=== PATIENT | male | born 2005 | race African-American/Black ===

== ENCOUNTER 2023-12-02 09:38 | Emergency (ER) | payer OTHER, MEDICAID, SELFPAY ==
[2023-12-02 09:49] VITALS: BP 117/79; PULSE 74; RESP 18; TEMP 36.3; O2SAT 97
[2023-12-02 10:19] LABS: Appearance Urine Cloudy (Clear); Bacteria Urine None Seen /hpf; Bilirubin Urine Negative (Negative); Blood Urine Negative (Negative); Color Urine Yellow (Yellow); Glucose Urine UA Negative (Negative); Ketones Urine Negative (Negative); Leukocyte Esterase Ur 2+ LEU/UL (Negative); Nitrate Urine Negative (Negative); Non Pathogenic Casts 0-2; Protein Urine Trace mg/dL (Negative); RBC Urine 0-2 /hpf (0-2); Specific Grav Ur 1.026 (1.001-1.035); Squamous Epithelial Cell Urine None Seen /hpf (Few); WBC Urine >100 /hpf (0-3)
[2023-12-02 10:25] LABS: Add Urine Microscopic? YES
[2023-12-02 11:20] LABS: Trichomonas Vag PCR NOT DETECTED (NOT DETECTE)
[2023-12-02 11:43] LABS: Chlamydia trachomatis NOT DETECTED (NOT DETECTE); Neisseria gonorrhoeae PCR DETECTED (NOT DETECTE)
--- NOTE | 2023-12-02 11:59 | ED.GENADULT ---
HPI - General Adult General Chief complaint: Urogenital-Male Stated complaint: pain in my private area burning with urination Time Seen by Provider: 12/02/23 09:51 History of Present Illness HPI narrative: 18-year-old male presenting to the emergency department for evaluation for burning with urination. Patient started having discharge from his penis yesterday. Patient denies any associated abdominal pain or nausea vomiting. Related Data Allergies Allergy/AdvReac Type Severity Reaction Status Date / Time banana Allergy Unknown Verified 12/02/23 09:54 Fish Containing Products Allergy Unknown Verified 12/02/23 09:54 Review of Systems Review of Systems: All systems reviewed & are unremarkable except as noted in HPI and below Exam Narrative: APPEARANCE: Well appearing, no pain, no distress, well-nourished. HEAD: normocephalic, atraumatic. EYES: PERRLA/EOMI, conjunctivae clear. NOSE: Normal no drainage EARS:TMS clear with good light reflex. THROAT: Pharynx clear, no exudate. NECK: Supple. No adenopathy, no masses. RESPIRATORY: Airway patent, respirations nonlabored. Clear to auscultation bilaterally, no rales, rhonchi, wheezing. CARDIOVASCULAR: Regular rate and rhythm without murmurs rubs or gallops. ABDOMINAL: Soft, nontender, nondistended, normal bowel sounds MUSCULOSKELETAL: Moves all extremities. Strength/ROM intact, No edema, No calf tenderness. NEURO: Alert. Cranial nerves II through XII intact. Good gait. Good coordination SKIN: Warm, dry. Normal Color Course Course Emergency Course: Patient was treated for gonorrhea and chlamydia. Vital Signs Vital signs: Vital Signs Temperature 97.3 F L 12/02/23 09:49 Pulse Rate 74 12/02/23 09:49 Respiratory Rate 18 12/02/23 09:49 Blood Pressure 117/79 12/02/23 09:49 Pulse Oximetry 97 12/02/23 09:49 Oxygen Delivery Room Air 12/02/23 09:49 Temperature 97.3 F L 12/02/23 09:49 Pulse Rate 87 12/02/23 12:31 Respiratory Rate 20 12/02/23 12:31 Blood Pressure 132/62 12/02/23 12:31 Pulse Oximetry 100 12/02/23 12:31 Oxygen Delivery Room Air 12/02/23 09:49 Medical Decision Making MDM Narrative Medical decision making narrative: 18-year-old male presents to the emergency department for evaluation for burning with urination. Patient's UA was cloudy with leuk esterase positive greater than 100 white blood cells. Patient did test positive for gonorrhea. Patient was treated for both gonorrhea and chlamydia. Patient received 500 mg IM Rocephin the emergency department and was started on doxy and patient was discharged home with doxycycline. Patient was advised to refrain from sexual activity until both he and his partner have completed their antibiotics. Patient was encouraged of close follow-up with primary care physician. Differential Diagnosis Differential Diagnosis: Gonorrhea, chlamydia, Trichomonas, urinary tract infection Vital Signs Vital Signs: Vital Signs Temperature 97.3 F L 12/02/23 09:49 Pulse Rate 74 12/02/23 09:49 Respiratory Rate 18 12/02/23 09:49 Blood Pressure 117/79 12/02/23 09:49 Pulse Oximetry 97 12/02/23 09:49 Oxygen Delivery Room Air 12/02/23 09:49 Temperature 97.3 F L 12/02/23 09:49 Pulse Rate 87 12/02/23 12:31 Respiratory Rate 20 12/02/23 12:31 Blood Pressure 132/62 12/02/23 12:31 Pulse Oximetry 100 12/02/23 12:31 Oxygen Delivery Room Air 12/02/23 09:49 Lab Data Labs: Lab Results 12/02/23 Range/Units 10:04 Urine Color Yellow (Yellow) Urine Appearance Cloudy H (Clear) Urine pH 6.0 (5.0-9.0) Ur Specific [place] 1.026 (1.001-1.035) Urine Protein Trace (Negative) mg/dL Urine Glucose (UA) Negative (Negative) mg/dL Urine Ketones Negative (Negative) mg/dL Ur Blood (Man) Negative (Negative) Urine Nitrate Negative (Negative) Urine Bilirubin Negative (Negative) Urine Urobilinogen 1.0 (<2.0) mg/dL Leukocyte Estera
[2023-12-02] MEDS: LIDOCAINE HCL 1% LOCAL INJ 10 ML VIAL (12:24)
[2023-12-02] MEDS: DOXYCYCLINE HYCLATE 100 MG TABLET PO (12:25)
[2023-12-02] MEDS: cefTRIAXone 1 GM VIAL 0.5 GM IM (12:26)
[2023-12-02 12:31] VITALS: BP 132/62; PULSE 87; RESP 20; O2SAT 100
== END 2023-12-02 12:33 | disposition home or self-care (01) ==
PROVIDERS: Emergency Provider Emergency Medicine
DX: A54.9 Gonococcal infection, unspecified (principal)
CPT/HCPCS: 81001; 87086; 87491; 87591; 87661; 96372; 99283; A9270; J0696

== ENCOUNTER 2024-12-28 17:32 | Emergency (ER) | payer BC, SELFPAY ==
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
--- OUTSIDE RECORDS SUMMARY | 2024-12-28 17:34 | XMS_ITS | Patient Health Record ---
Author Organization Pending sale to [facility] Address [address] [place] [address] Care Team Providers Care Insurance Rater Name Role Phone Meng Meza Primary Care Provider Allergies No Known Allergies Reason For Referral No Information Medications Medication SIG (Take, Route, Fr equency, Duration) Notes Start Date End Date Status guanFACINE HCl ER 1 MG 1 tablet before b ed. 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
[2024-12-28 17:40] VITALS: BP 146/86; PULSE 111; RESP 17; TEMP 36.7; O2SAT 99
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
[2024-12-28] MEDS: HYDROcodone/acetaminophen (*CRX) 5-325 MG TABLET 1 TAB PO (20:07)
[2024-12-28 20:12] VITALS: BP 139/70; PULSE 100; RESP 16; TEMP 36.7; O2SAT 100
[2024-12-28] MEDS: BACITRACIN OINTMENT 15 GM TUBE 1 APPLIC TOPICAL (20:32)
== END 2024-12-28 20:40 | disposition home or self-care (01) ==
PROVIDERS: Emergency Provider Student in an Organized Health Care Education/Training Program
DX: S01.81XA Laceration without foreign body of other part of head, initial encounter (principal); V47.5XXA Car driver injured in collision with fixed or stationary object in traffic accident, initial encounter
CPT/HCPCS: 70450; 72125; 90471; 99284; A9270; L0140

== ENCOUNTER 2025-01-21 22:33 | Observation (INO) | payer BC, SELFPAY ==
--- NOTE | ~2025-01-21 | XR_ITS ---
Clinical Indication: Chest pain PA and lateral views of the chest: Comparison: None Findings: The lungs are clear, without evidence of focal consolidation or pleural effusion. Cardiomediastinal silhouette is within normal limits. Bones and soft tissues are unremarkable. Impression: Normal chest. Reviewed, dictated and finalized at location . Impression: Normal chest.
--- OUTSIDE RECORDS SUMMARY | 2025-01-21 22:35 | XMS_ITS | Patient Health Record ---
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
[2025-01-21 22:37] VITALS: BP 139/69; PULSE 121; RESP 18; TEMP 37.4; O2SAT 97
--- NOTE | 2025-01-21 22:44 | ECG_ITS ---
Test Date: 2025-01-21 22:47:03 Measurements Intervals [place] Rate: 110 P: 34 MD: 154 QRS: 65 QRSD: 95 T: -11 QT: 308 QTc: 418 Interpretive Statements SINUS TACHYCARDIA INCOMPLETE RIGHT BUNDLE BRANCH BLOCK NONSPECIFIC ST & T-WAVE ABNORMALITY- INF/LAT LEADS BASELINE WANDER- AVR, AVL, AVF, V3, V5-V6 ABNORMAL ECG No previous ECG available for comparison Electronically Signed On 01-22-2025 06:16:10 CDT by Roberto Carlos Pena D.O.
[2025-01-21 23:02] LABS: Hematocrit 41.6 % (42.0-52.0); Hemoglobin 14.2 g/dL (14.0-18.0); Immature Granulocyte Percent A 0.3 % (0-0.5); Lymphocytes Absolute Auto 2.23 K/mm3 (0.9-3.2); Mean Corpuscular HGB Conc 34.1 g/dl (32-36); Mean Corpuscular Hemoglobin 31.6 pg (26-34); Mean Corpuscular Volume 92.4 fl (80-100); Nucleated Red Blood Cells Absolute Auto 0.000 K/mm3 (0.0-0.012); Nucleated Red Blood Cells Perc 0.0 % (0.0-0.2); Platelet Count Result 298 k/mm3 (150-375); Red Blood Count 4.50 M/mm3 (4.6-6.20); White Blood Count 12.0 K/mm3 (4.5-10.0)
[2025-01-21 23:17] LABS: Alanine Aminotransferase 57 U/L (6-50); Albumin Level 4.5 g/dL (3.5-5.1); Alkaline Phosphatase 78 U/L (38-126); Anion Gap 8 mmol/L (4-12); Aspartate Amino Transferase 73 U/L (17-59); Bilirubin,Total 0.8 mg/dL (0.2-1.3); Blood Urea Nitrogen 12 mg/dL (9-20); Calcium 9.5 mg/dL (8.4-10.2); Carbon Dioxide 26 mmol/L (22-30); Chloride 101 mmol/L (98-107); Estimated CRCL calculation 142 ml/min; Estimated Glomerular Filt Rate > 60; Glucose 125 mg/dL (65-110); INR 1.0; Lipase 59 U/L (23-300); Potassium 3.8 mmol/L (3.4-5.0); Prothrombin Time 13.5 Seconds (11.1-14.7); Sodium 135 mmol/L (137-145); Total Protein 8.3 g/dL (6.3-8.2)
[2025-01-21 23:18] LABS: Partial Thromboplastin Time 29.3 Seconds (22.3-36.8)
[2025-01-21 23:31] LABS: Troponin I 0.057 ng/mL (0.000-0.034)
[2025-01-21 23:40] VITALS: PULSE 111
[2025-01-21 23:41] VITALS: BP 122/69; PULSE 102; RESP 23; O2SAT 97
[2025-01-21] MEDS: ASPIRIN 81 MG CHEWABLE TABLET 324 MG PO (23:52)
[2025-01-21] MEDS: LACTATED RINGERS 1,000 ML 999 ML IV CONT (23:52)
[2025-01-22] VITALS (9 sets, daily range): BP systolic 114–132; BP diastolic 51–81; PULSE 80–97; RESP 16–20; TEMP 36.4–36.6; O2SAT 97–99; BMI 31.1; BMI 31.4
--- NOTE | 2025-01-22 00:01 | ED_ITS ---
HPI - General Adult General Chief complaint: Chest Pain Stated complaint: chest pain Time Seen by Provider: 01/21/25 23:38 History of Present Illness HPI narrative: 19-year-old male presents to the emergency department for evaluation for chest pain. 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 Patient denies any prior cardiac history. Patient denies any use of amphetamines or cocaine. Related Data Allergies Allergy/AdvReac Type Severity Reaction Status Date / Time banana Allergy Unknown Verified 12/28/24 17:49 Fish Containing Products Allergy Unknown Verified 12/28/24 17:49 Review of Systems 2 Review of Systems: All systems reviewed & are unremarkable except as noted in HPI and below PMFSH Social History Social History Smoking status: Never smoker Second hand tobacco smoke exposure: No Alcohol intake: never Substance use: never Substance use type: does not use Lack of Transportation: No Lack of Food: Never True Current Housing: I Have Housing Concerned About Future Housing: No Difficulty Paying Gas/Electric Bills: No Difficulty Paying for Meds: No Currently Unemployed: No Education: Grade School Difficulty w/ Childcare or Family Care: No Spiritual care concerns: No Exam 2 Narrative: APPEARANCE: Well appearing, no pain, no distress, well-nourished. HEAD: normocephalic, atraumatic. EYES: PERRLA/EOMI, conjunctivae clear. NOSE: Normal no drainage EARS:TMS clear with good light reflex. THROAT: Pharynx clear, no exudate. NECK: Supple. No adenopathy, no masses. RESPIRATORY: Airway patent, respirations nonlabored. Clear to auscultation bilaterally, no rales, rhonchi, wheezing. CARDIOVASCULAR: Regular rate and rhythm without murmurs rubs or gallops. ABDOMINAL: Soft, nontender, nondistended, normal bowel sounds MUSCULOSKELETAL: Moves all extremities. Strength/ROM intact, No edema, No calf tenderness. NEURO: Alert. Cranial nerves II through XII intact. Grossly intact SKIN: Warm, dry. Normal Color Course Vital Signs Vital signs: Vital Signs Temperature 99.3 F 01/21/25 22:37 Pulse Rate 121 H 01/21/25 22:37 Respiratory Rate 18 01/21/25 22:37 Blood Pressure 139/69 01/21/25 22:37 Pulse Oximetry 97 01/21/25 22:37 Oxygen Delivery Room Air 01/21/25 22:37 Temperature 97.6 F 01/22/25 05:17 Pulse Rate 97 01/22/25 05:17 Respiratory Rate 20 01/22/25 05:17 Blood Pressure 114/51 L 01/22/25 05:17 Pulse Oximetry 97 01/22/25 05:17 Oxygen Delivery Room Air 01/22/25 02:15 Medical Decision Making MDM Narrative Medical decision making narrative: 19-year-old male presents emergency department for evaluation for chest pain after heavy Jovi exertion. Patient does have an elevated CPK of 2004 turned 58 for. Patient did have an elevated troponin that was trending down. No changes in the EKG concerning for ischemia. Patient was treated with 3 L of lactated Ringer's in the emergency department and started on maintenance fluids. Case was discussed with hospitalist patient was accepted for admission to [facility]. Differential Diagnosis Differential Diagnosis: ACS, rhabdomyolysis, cardiomyopathy Vital Signs Vital Signs: Vital Signs Temperature 99.3 F 01/21/25 22:37 Pulse Rate 121 H 01/21/25 22:37 Respiratory Rate 18 01/21/25 22:37 Blood Pressure 139/69 01/21/25 22:37 Pulse Oximetry 97 01/21/25 22:37 Oxygen Delivery Room Air 01/21/25 22:37 Temperature 97.6 F 01/22/25 05:17 Pulse Rate 97 01/22/25 05:17 Respiratory Rate 20 01/22/25 05:17 Blood Pressure 114/51 L 01/22/25 05:17 Pulse Oximetry 97 01/22/25 05:17 Oxygen Delivery Room Air 01/22/25 02:15 Lab Data Lab results reviewed: Yes I reviewed the patient's lab results. 01/21/25 22:52 01/21/25 22:52 Labs: Lab Results 01/21/25 01/21/25 01/22/25 Range/Units 01:27 22:52 01:27 WBC 12.0 H (4.5-10.0) K/mm3 RBC 4.50 L (4.6-6.20) M/mm3 Hgb 14.2 (14.0-18.0) g/dL Hct 41.6 L (42.0-52.0) % MCV 92.4 (80-100) fl MCH 31.6 (26-34) pg MCHC 34.1 (32-36) g/dl RDW 12.0 (11.5-14.5) % Plt Count 298 (150-375) k/mm3 MPV 9.2 (7.4-10.4) fl Immature Gran % (Auto) 0.3 (0-0.5) % Neut % (Auto) 70.2 (45.5-73.1) % Lymph % (Auto) 18.6 (18.3-44.2) % [place] % (Auto) 10.1 H (2.6-8.5) % Eos % (Auto) 0.4 (0-4.4) % Baso % (Auto) 0.4 (0.2-1.2) % Lymph # (Auto) 2.23 (0.9-3.2) K/mm3 [place] # (Auto) 1.2 H (0.1-0.6) K/mm3 Eos # (Auto) 0.1 (0-0.3) K/mm3 Baso # (Auto) 0.1 (0.0-0.1) K/mm3 Abs Immat Gran (auto) 0.04 H (0.00-0.031) K/mm3 Absolute Neuts (auto) 8.4 H (1.3-6.7) K/mm3 Absolute Nucleated RBC 0.000 (0.0-0.012) K/mm3 Nucleated RBC % 0.0 (0.0-0.2) % PT 13.5 (11.1-14.7) Seconds INR 1.0 APTT 29.3 (22.3-36.8) Seconds D-Dimer 0.39 (<0.48) ug/mL Sodium 135 L (137-145) mmol/L Potassium 3.8 (3.4-5.0) mmol/L Chloride 101 (98-107) mmol/L Carbon Dioxide 26 (22-30) mmol/L Anion Gap 8 (4-12) mmol/L BUN 12 (9-20) mg/dL Creatinine 0.90 (0.7-1.3) mg/dL Estim Creat Clear Calc 142 ml/min Estimated GFR > 60 (59 - ) Glucose 125 H (65-110) mg/dL Calcium 9.5 (8.4-10.2) mg/dL Total Bilirubin 0.8 (0.2-1.3) mg/dL AST 73 H (17-59) U/L ALT 57 H (6-50) U/L Alkaline Phosphatase 78 (38-126) U/L Total Creatine Kinase 2564 H (55-170) U/L Troponin I 0.057 H* 0.043 H* D (0.000-0.034) ng/mL Total Protein 8.3 H (6.3-8.2) g/dL Albumin 4.5 (3.5-5.1) g/dL Lipase 59 (23-300) U/L Urine Color Yellow (Yellow) Urine Appearance Clear (Clear) Urine pH 6.5 (5.0-9.0) Ur Specific [place] 1.007 (1.001-1.035) Urine Protein Negative (Negative) mg/dL Urine Glucose (UA) Negative (Negative) mg/dL Urine Ketones Negative (Negative) mg/dL Ur Blood (Man) Negative (Negative) Urine Nitrate Negative (Negative) Urine Bilirubin Negative (Negative) Urine Urobilinogen 0.2 (<2.0) mg/dL Leukocyte Esterase Rfl Negative (Negative) JEN/UL Urine Opiates Screen Negative (Negative) Urine Methadone Screen Negative (Negative) Ur Barbiturates Screen Negative (Negative) Ur Phencyclidine Scrn Negative (Negative) Ur Amphetamine Screen Negative (Negative) U Benzodiazepines Scrn Negative (Negative) Urine Cocaine Screen Negative (Negative) U Cannabinoids Screen Negative (Negative) Imaging Data My impression: Chest x-ray: No acute cardiopulmonary abnormality ECG Data EKG #1: EKG Interpretation: tachycardia, sinus rhythm, no ectopy, non-specific ST changes, normal QRS, normal QT and NL axis Discharge Plan Discharge Clinical Impression: Rhabdomyolysis, Elevated troponin Patient Disposition: Still a Patient Condition: Serious
[2025-01-22] MEDS: LACTATED RINGERS 1,000 ML 999 ML IV CONT ×2 (00:04→01:54)
[2025-01-22 01:14] LABS: Creatine Kinase 2564 U/L (55-170)
[2025-01-22 02:00] LABS: Add Urine Microscopic? NO; Appearance Urine Clear (Clear); Glucose Urine UA Negative (Negative); Leukocyte Esterase Ur Negative LEU/UL (Negative); Nitrate Urine Negative (Negative); Specific Grav Ur 1.007 (1.001-1.035)
[2025-01-22 02:06] LABS: Troponin I 0.043 ng/mL (0.000-0.034)
[2025-01-22 02:45] LABS: Cannabinoid Screen Urine Negative (Negative)
[2025-01-22] MEDS: LACTATED RINGERS 1,000 ML 125 ML IV CONT ×3 (05:14→21:21)
[2025-01-22 06:04] LABS: Creatine Kinase 2178 U/L (55-170)
[2025-01-22 06:08] LABS: Troponin I 0.033 ng/mL (0.000-0.034)
--- NOTE | 2025-01-22 07:45 | P.HP_ITS ---
H&P: HPI History of Present Illness Date/Time: 01/22/25 06:15 Chief Complaint: Chest pain Narrative: 19-year-old previously healthy male who presented ER with chest pain the patient reports that he usually has a low activity lifestyle and does not exercise all that much. 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 He completed his 1st day of work today and then developed chest pain. After encouragement from his mother he decided come into the ER for evaluation. His EKG in the ER demonstrated normal sinus rhythm. He denied any radiation of his chest pain. He was having some right arm pain but he associated this with swinging the sledgehammer. He denies any nausea or vomiting, heartburn, dyspnea on exertion palpitation. He does not have any family history of heart disease. He does not use energy drinks, amphetamines or cocaine. He is a lifelong nonsmoker. He only rarely drinks alcohol. In the ER he had a mildly elevated troponin and significantly elevated CK. He received 30 mL per kilos bolus. And was admitted for treatment of rhabdomyolysis. He denies any changes in urinary frequency or appearance of a urine. Review of Systems 2 Review of Systems: 12 systems were reviewed with pertinent positives and negatives per HPI. Except as documented in the HPI, all other systems were reviewed and are negative. [facility] Past Medical History Medical History (Updated 01/22/25 @ 08:03 by Jennifer Hahn DO) No significant past medical history Surgical History Surgical History (Updated 01/22/25 @ 07:53 by Jennifer Hahn DO) No history of previous surgery Family History Family History (Updated 01/22/25 @ 07:53 by Jennifer Hahn DO) Other Essential hypertension Social History Social History (Updated 01/22/25 @ 07:54 by Jennifer Hahn DO) Social History: The patient lives with his girlfriend. He reports he rarely drinks alcohol. He denies any tobacco use, illicit substance use or vaping. Code status: Full code Smoking status: Never smoker Second hand tobacco smoke exposure: No Alcohol intake: never Substance use: never Substance use type: does not use Lack of Transportation: No Lack of Food: Never True Current Housing: I Have Housing Concerned About Future Housing: No Difficulty Paying Gas/Electric Bills: No Difficulty Paying for Meds: No Currently Unemployed: No Education: Grade School Difficulty w/ Childcare or Family Care: No Spiritual care concerns: No Meds Home Medications and Allergies Home Medications ?Medication ?Instructions ?Recorded ?Confirmed ?Type acetaminophen 500 mg capsule 1,000 mg (2 x 500 mg) PO Q6H PRN 12/28/24 01/22/25 Rx pain #30 caps Allergies Allergy/AdvReac Type Severity Reaction Status Date / Time banana Allergy Unknown Verified 12/28/24 17:49 Fish Containing Products Allergy Unknown Verified 12/28/24 17:49 Vital Signs Vital Signs - 24 hr 01/21/25 22:37 01/21/25 23:40 01/21/25 23:41 Temperature 99.3 F Pulse Rate 121 H 111 H 102 H Respiratory Rate 18 23 H Blood Pressure 139/69 122/69 Pulse Oximetry 97 97 Oxygen Delivery Room Air 01/22/25 02:15 01/22/25 02:17 01/22/25 04:59 Temperature Pulse Rate 80 83 Respiratory Rate 17 17 Blood Pressure 130/73 132/81 Pulse Oximetry 98 97 99 Oxygen Delivery Room Air 01/22/25 05:15 01/22/25 05:16 01/22/25 05:17 Temperature 97.6 F Pulse Rate 97 83 97 Respiratory Rate 20 17 20 Blood Pressure 132/81 114/51 L Pulse Oximetry 97 99 97 Oxygen Delivery Room Air Exam 2 Narrative: Weight 105.3 kg BMI 31.5 Const: Other: Overweight, no acute distress, appears stated age HENMT: Other: Mucous membranes are moist, no oral pharyngeal erythema, head is normocephalic atraumatic Eyes: Other: No conjunctival pallor, no scleral icterus Neck: Other: Large neck circumference, no thyromegaly Resp: Other: Clear to auscultation bilaterally, no increased work of breathing Cardio: Other: Regular rate, regular rhythm, 2+ bilateral radial pedal pulse GI: Other: Soft, nontender, nondistended, normoactive bowel sounds Skin: Other: No jaundice, no pallor Neuro: Other: Alert oriented, speech is clear, no facial asymmetry Extrem: Other: No clubbing, cyanosis or edema Psych: Other: Appropriate mood and affect, pleasant and cooperative H&P: Results Labs Labs: Laboratory Tests 01/21/25 22:52 01/21/25 22:52 01/21/25 01/21/25 01/22/25 01:27 22:52 01:27 WBC 12.0 H RBC 4.50 L Hgb 14.2 Hct 41.6 L MCV 92.4 MCH 31.6 MCHC 34.1 RDW 12.0 Plt Count 298 MPV 9.2 Immature Gran % (Auto) 0.3 Neut % (Auto) 70.2 Lymph % (Auto) 18.6 [place] % (Auto) 10.1 H Eos % (Auto) 0.4 Baso % (Auto) 0.4 Lymph # (Auto) 2.23 [place] # (Auto) 1.2 H Eos # (Auto) 0.1 Baso # (Auto) 0.1 Abs Immat Gran (auto) 0.04 H Absolute Neuts (auto) 8.4 H Absolute Nucleated RBC 0.000 Nucleated RBC % 0.0 PT 13.5 INR 1.0 APTT 29.3 D-Dimer 0.39 Sodium 135 L Potassium 3.8 Chloride 101 Carbon Dioxide 26 Anion Gap 8 BUN 12 Creatinine 0.90 Estim Creat Clear Calc 142 Estimated GFR > 60 Glucose 125 H Calcium 9.5 Total Bilirubin 0.8 AST 73 H ALT 57 H Alkaline Phosphatase 78 Total Creatine Kinase 2564 H Troponin I 0.057 H* 0.043 H* D Total Protein 8.3 H Albumin 4.5 Lipase 59 Urine Color Yellow Urine Appearance Clear Urine pH 6.5 Ur Specific [place] 1.007 Urine Protein Negative Urine Glucose (UA) Negative Urine Ketones Negative Ur Blood (Man) Negative Urine Nitrate Negative Urine Bilirubin Negative Urine Urobilinogen 0.2 Leukocyte Esterase Rfl Negative Urine Opiates Screen Negative Urine Methadone Screen Negative Ur Barbiturates Screen Negative Ur Phencyclidine Scrn Negative Ur Amphetamine Screen Negative U Benzodiazepines Scrn Negative Urine Cocaine Screen Negative U Cannabinoids Screen Negative 01/22/25 05:22 WBC RBC Hgb Hct MCV MCH MCHC RDW Plt Count MPV Immature Gran % (Auto) Neut % (Auto) Lymph % (Auto) [place] % (Auto) Eos % (Auto) Baso % (Auto) Lymph # (Auto) [place] # (Auto) Eos # (Auto) Baso # (Auto) Abs Immat Gran (auto) Absolute Neuts (auto) Absolute Nucleated RBC Nucleated RBC % PT INR APTT D-Dimer Sodium Potassium Chloride Carbon Dioxide Anion Gap BUN Creatinine Estim Creat Clear Calc Estimated GFR Glucose Calcium Total Bilirubin AST ALT Alkaline Phosphatase Total Creatine Kinase 2178 H Troponin I 0.033 D Total Protein Albumin Lipase Urine Color Urine Appearance Urine pH Ur Specific [place] Urine Protein Urine Glucose (UA) Urine Ketones Ur Blood (Man) Urine Nitrate Urine Bilirubin Urine Urobilinogen Leukocyte Esterase Rfl Urine Opiates Screen Urine Methadone Screen Ur Barbiturates Screen Ur Phencyclidine Scrn Ur Amphetamine Screen U Benzodiazepines Scrn Urine Cocaine Screen U Cannabinoids Screen Impressions Chest X-Ray 01/22/25 05:53 Impression: Normal chest. EKG: Personally reviewed and interpreted Normal sinus rhythm Assessment and Plan Assessment and plan (1) Rhabdomyolysis: Qualifiers: Rhabdomyolysis type: non-traumatic Qualified Code(s): M62.82 - Rhabdomyolysis Code(s): M62.82 - Rhabdomyolysis Status: Acute (2) Elevated troponin: Code(s): R79.89 - Other specified abnormal findings of blood chemistry Status: Acute Plan The patient presented to the ER with rhabdomyolysis due to over exertion and he did exposure. He was dehydrated. He received 30 mL/kilos fluid bolus. Repeat cecal level is starting to trend down. He has had fair amount of urine output. Will monitor renal function with repeat labs ordered for a.m.. Will repeat CK in a.m. as well. Will provide Tylenol and ibuprofen as needed for muscle pain and discomfort. Will continue aggressive IV fluid hydration with fluids at 200 mL an hour. Patient has been admitted as observation status. Quality VTE Prophylaxis VTE prophylaxis: pharmacologic ordered (Lovenox 40 mg subQ daily) Hospitalist [facility] Advance Care Plan I have confirmed that the patient's Advanced Care Plan is present, code status is documented, or surrogate decision maker is listed in patient medical record.: Yes Medication Reconciliation I have utilized all available resources to obtain, update and review the patients current medications (includes all prescriptions, OTC, herbals, cannabis, and nutritional supplements).: Yes
[2025-01-22 15:41] LABS: Creatine Kinase 2286 U/L (55-170)
--- NOTE | 2025-01-22 15:41 | P.DS_ITS ---
DS: Admitting Diagnosis Discharge Date 01/22 Admitting Diagnosis rhabdo DS: Discharge Diagnosis Discharge Diagnosis (1) Rhabdomyolysis: Qualifiers: Rhabdomyolysis type: non-traumatic Qualified Code(s): M62.82 - Rhabdomyolysis Code(s): M62.82 - Rhabdomyolysis Status: Acute (2) Elevated troponin: Code(s): R79.89 - Other specified abnormal findings of blood chemistry Status: Acute DS: Summary Hospital Course Hospital Course: 19-year-old previously healthy male who presented ER with chest pain the patient reports that he usually has a low activity lifestyle and does not exercise all that much. 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 He completed his 1st day of work today and then developed chest pain. After encouragement from his mother he decided come into the ER for evaluation. His EKG in the ER demonstrated normal sinus rhythm. He does not use energy drinks, amphetamines or cocaine. He is a lifelong nonsmoker. He only rarely drinks alcohol. In the ER he had a mildly elevated troponin and significantly elevated CK. He received 30 mL per kilos bolus. And was admitted for treatment of rhabdomyolysis. He denies any changes in urinary frequency or appearance of a urine. Tylenol and ibuprofen as needed for muscle pain and discomfort. CK trending down- 2178-down from 2567. Trop back to normal, 0.033. nO chest pain. Wants to go home. Will repeat CK one more tiem and trending down- will discharge with a close f/u with PCP - he will need to get a PCP- he is aware. Time Spent with Patient Time attestation: Total time spent providing and/or coordinating discharge services: Exam Narrative: Weight 105.3 kg BMI 31.5 Const: Other: Overweight, no acute distress, appears stated age HENMT: Other: Mucous membranes are moist, no oral pharyngeal erythema, head is normocephalic atraumatic Eyes: Other: No conjunctival pallor, no scleral icterus Neck: Other: Large neck circumference, no thyromegaly Resp: Other: Clear to auscultation bilaterally, no increased work of breathing Cardio: Other: Regular rate, regular rhythm, 2+ bilateral radial pedal pulse GI: Other: Soft, nontender, nondistended, normoactive bowel sounds Skin: Other: No jaundice, no pallor Neuro: Other: Alert oriented, speech is clear, no facial asymmetry Extrem: Other: No clubbing, cyanosis or edema Psych: Other: Appropriate mood and affect, pleasant and cooperative DS: Data Data Completed and Pending Labs on day of discharge: Labs from last 24 hours 01/22/25 01/22/25 01/22/25 14:55 05:22 01:27 WBC RBC Hgb Hct MCV MCH MCHC RDW Plt Count MPV Immature Gran % (Auto) Neut % (Auto) Lymph % (Auto) [place] % (Auto) Eos % (Auto) Baso % (Auto) Lymph # (Auto) [place] # (Auto) Eos # (Auto) Baso # (Auto) Abs Immat Gran (auto) Absolute Neuts (auto) Absolute Nucleated RBC Nucleated RBC % PT INR APTT D-Dimer Sodium Potassium Chloride Carbon Dioxide Anion Gap BUN Creatinine Estim Creat Clear Calc Estimated GFR Glucose Calcium Total Bilirubin AST ALT Alkaline Phosphatase Total Creatine Kinase Pending 2178 H Troponin I 0.033 D 0.043 H* D Total Protein Albumin Lipase Urine Color Yellow Urine Appearance Clear Urine pH 6.5 Ur Specific [place] 1.007 Urine Protein Negative Urine Glucose (UA) Negative Urine Ketones Negative Ur Blood (Man) Negative Urine Nitrate Negative Urine Bilirubin Negative Urine Urobilinogen 0.2 Leukocyte Esterase Rfl Negative Urine Opiates Screen Negative Urine Methadone Screen Negative Ur Barbiturates Screen Negative Ur Phencyclidine Scrn Negative Ur Amphetamine Screen Negative U Benzodiazepines Scrn Negative Urine Cocaine Screen Negative U Cannabinoids Screen Negative 01/21/25 01/21/25 22:52 01:27 WBC 12.0 H RBC 4.50 L Hgb 14.2 Hct 41.6 L MCV 92.4 MCH 31.6 MCHC 34.1 RDW 12.0 Plt Count 298 MPV 9.2 Immature Gran % (Auto) 0.3 Neut % (Auto) 70.2 Lymph % (Auto) 18.6 [place] % (Auto) 10.1 H Eos % (Auto) 0.4 Baso % (Auto) 0.4 Lymph # (Auto) 2.23 [place] # (Auto) 1.2 H Eos # (Auto) 0.1 Baso # (Auto) 0.1 Abs Immat Gran (auto) 0.04 H Absolute Neuts (auto) 8.4 H Absolute Nucleated RBC 0.000 Nucleated RBC % 0.0 PT 13.5 INR 1.0 APTT 29.3 D-Dimer 0.39 Sodium 135 L Potassium 3.8 Chloride 101 Carbon Dioxide 26 Anion Gap 8 BUN 12 Creatinine 0.90 Estim Creat Clear Calc 142 Estimated GFR > 60 Glucose 125 H Calcium 9.5 Total Bilirubin 0.8 AST 73 H ALT 57 H Alkaline Phosphatase 78 Total Creatine Kinase 2564 H Troponin I 0.057 H* Total Protein 8.3 H Albumin 4.5 Lipase 59 Urine Color Urine Appearance Urine pH Ur Specific [place] Urine Protein Urine Glucose (UA) Urine Ketones Ur Blood (Man) Urine Nitrate Urine Bilirubin Urine Urobilinogen Leukocyte Esterase Rfl Urine Opiates Screen Urine Methadone Screen Ur Barbiturates Screen Ur Phencyclidine Scrn Ur Amphetamine Screen U Benzodiazepines Scrn Urine Cocaine Screen U Cannabinoids Screen Discharge Plan Discharge Patient Language: Citizen Of [place] Discharge Medications: No Action acetaminophen 500 mg capsule 1,000 mg PO Q6H PRN (Reason: pain) Qty: 30 0RF Date of admission: 01/22/25 02:39 Primary Care Provider: PHYSICIAN,[employer] Admitting Provider: Jennifer Hahn Attending physician on admission: Jennifer Hahn Condition: Serious Quality VTE Prophylaxis VTE prophylaxis: pharmacologic ordered (Lovenox 40 mg subQ daily)
--- NOTE | 2025-01-22 15:45 | PM.IMPN ---
Progress Note: A&P Assessment and Plan (1) Rhabdomyolysis: Qualifiers: Rhabdomyolysis type: non-traumatic Qualified Code(s): M62.82 - Rhabdomyolysis Code(s): M62.82 - Rhabdomyolysis Status: Acute (2) Elevated troponin: Code(s): R79.89 - Other specified abnormal findings of blood chemistry Status: Acute Plan The patient presented to the ER with rhabdomyolysis due to over exertion and he did exposure. He was dehydrated. He received 30 mL/kilos fluid bolus. Repeat cecal level is starting to trend down. He has had fair amount of urine output. - monitor renal function with repeat labs ordered for a.m.. - repeat CK in a.m. as well. - Tylenol and ibuprofen as needed for muscle pain and discomfort. - continue aggressive IV fluid hydration with fluids at 200 mL an hour. - he wanted to go home tonight but repeated CK was still a bit elevated- 2286, so will hydrate overnight and repeat CK in am - if stable, discharge in am Time Spent With Patient Time with patient: 25 - 35 minutes Subjective Date/time seen: 01/22/25 15:45 Interval history: 19-year-old previously healthy male who presented ER with chest pain the patient reports that he usually has a low activity lifestyle and does not exercise all that much. 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 He completed his 1st day of work today and then developed chest pain. After encouragement from his mother he decided come into the ER for evaluation. His EKG in the ER demonstrated normal sinus rhythm. He does not use energy drinks, amphetamines or cocaine. He is a lifelong nonsmoker. He only rarely drinks alcohol. In the ER he had a mildly elevated troponin and significantly elevated CK. He received 30 mL per kilos bolus. And was admitted for treatment of rhabdomyolysis. He denies any changes in urinary frequency or appearance of a urine. Tylenol and ibuprofen as needed for muscle pain and discomfort. CK trending down- 2178-down from 2567. Trop back to normal, 0.033. nO chest pain. Wants to go home. Review of Systems Review of Systems: 12 systems were reviewed with pertinent positives and negatives per HPI. Except as documented in the HPI, all other systems were reviewed and are negative. Exam Narrative: Weight 105.3 kg BMI 31.5 Const: General: comfortable Other: Overweight, no acute distress, appears stated age HENMT: Other: Mucous membranes are moist, no oral pharyngeal erythema, head is normocephalic atraumatic Eyes: General: appearance normal, both eyes and all related structures Other: No conjunctival pallor, no scleral icterus Neck: Other: Large neck circumference, no thyromegaly Resp: Effort & Inspection: normal respiratory effort Auscultation: clear to auscultation bilaterally Cardio: Other: Regular rate, regular rhythm, 2+ bilateral radial pedal pulse GI: GI Palp: Yes Soft to palpation Other: Soft, nontender, nondistended, normoactive bowel sounds Skin: General skin exam: normal color Other: No jaundice, no pallor Neuro: Other: Alert oriented, speech is clear, no facial asymmetry Extrem: Other: No clubbing, cyanosis or edema Psych: Affect: normal affect Other: Appropriate mood and affect, pleasant and cooperative Objective Data Vital Signs Vital Signs: Vital Signs - 24 hr 01/21/25 22:37 01/21/25 23:40 01/21/25 23:41 Temperature 99.3 F Pulse Rate 121 H 111 H 102 H Respiratory Rate 18 23 H Blood Pressure 139/69 122/69 Pulse Oximetry 97 97 Oxygen Delivery Room Air 01/22/25 02:15 01/22/25 02:17 01/22/25 04:59 Temperature Pulse Rate 80 83 Respiratory Rate 17 17 Blood Pressure 130/73 132/81 Pulse Oximetry 98 97 99 Oxygen Delivery Room Air 01/22/25 05:15 01/22/25 05:16 01/22/25 05:17 Temperature 97.6 F Pulse Rate 97 83 97 Respiratory Rate 20 17 20 Blood Pressure 132/81 114/51 L Pulse Oximetry 97 99 97 Oxygen Delivery Room Air 01/22/25 10:31 01/22/25 14:00 Temperature 97.9 F Pulse Rate 97 96 Respiratory Rate 20 16 Blood Pressure 118/80 Pulse Oximetry 97 98 Oxygen Delivery Room Air Intake/Output Intake/Output: Intake & Output 01/19/25 01/20/25 01/21/25 01/22/25 23:59 23:59 23:59 23:59 Intake Total 4480 Balance 4480 Meds/Results Medications: Active Medications Generic Name Dose Route Start Last Admin Trade Name Freq PRN Reason Stop Dose Admin Acetaminophen 650 mg 01/22/25 07:55 Acetaminophen 325 Mg Tablet PO Q4H PRN Mild Pain (1-3) or Fever Lactated Ringer's 1,000 mls @ 125 mls/hr 01/22/25 02:25 01/22/25 13:17 Lr - Lactated Ringers Iv IV CONT 125 mls/hr .Q8H STEVEN Administration Ibuprofen 600 mg 01/22/25 07:55 Ibuprofen 600 Mg Tablet PO Q6H PRN Pain Rated 4-10 Radiology Results: ITS Impressions Chest X-Ray 01/22/25 05:53 Impression: Normal chest. Labs Labs: Laboratory Results - last 24 hr 01/21/25 01/21/25 01/22/25 01:27 22:52 01:27 WBC 12.0 H RBC 4.50 L Hgb 14.2 Hct 41.6 L MCV 92.4 MCH 31.6 MCHC 34.1 RDW 12.0 Plt Count 298 MPV 9.2 Immature Gran % (Auto) 0.3 Neut % (Auto) 70.2 Lymph % (Auto) 18.6 [place] % (Auto) 10.1 H Eos % (Auto) 0.4 Baso % (Auto) 0.4 Lymph # (Auto) 2.23 [place] # (Auto) 1.2 H Eos # (Auto) 0.1 Baso # (Auto) 0.1 Abs Immat Gran (auto) 0.04 H Absolute Neuts (auto) 8.4 H Absolute Nucleated RBC 0.000 Nucleated RBC % 0.0 PT 13.5 INR 1.0 APTT 29.3 D-Dimer 0.39 Sodium 135 L Potassium 3.8 Chloride 101 Carbon Dioxide 26 Anion Gap 8 BUN 12 Creatinine 0.90 Estim Creat Clear Calc 142 Estimated GFR > 60 Glucose 125 H Calcium 9.5 Total Bilirubin 0.8 AST 73 H ALT 57 H Alkaline Phosphatase 78 Total Creatine Kinase 2564 H Troponin I 0.057 H* 0.043 H* D Total Protein 8.3 H Albumin 4.5 Lipase 59 Urine Color Yellow Urine Appearance Clear Urine pH 6.5 Ur Specific [place] 1.007 Urine Protein Negative Urine Glucose (UA) Negative Urine Ketones Negative Ur Blood (Man) Negative Urine Nitrate Negative Urine Bilirubin Negative Urine Urobilinogen 0.2 Leukocyte Esterase Rfl Negative Urine Opiates Screen Negative Urine Methadone Screen Negative Ur Barbiturates Screen Negative Ur Phencyclidine Scrn Negative Ur Amphetamine Screen Negative U Benzodiazepines Scrn Negative Urine Cocaine Screen Negative U Cannabinoids Screen Negative 01/22/25 01/22/25 05:22 14:55 WBC RBC Hgb Hct MCV MCH MCHC RDW Plt Count MPV Immature Gran % (Auto) Neut % (Auto) Lymph % (Auto) [place] % (Auto) Eos % (Auto) Baso % (Auto) Lymph # (Auto) [place] # (Auto) Eos # (Auto) Baso # (Auto) Abs Immat Gran (auto) Absolute Neuts (auto) Absolute Nucleated RBC Nucleated RBC % PT INR APTT D-Dimer Sodium Potassium Chloride Carbon Dioxide Anion Gap BUN Creatinine Estim Creat Clear Calc Estimated GFR Glucose Calcium Total Bilirubin AST ALT Alkaline Phosphatase Total Creatine Kinase 2178 H 2286 H Troponin I 0.033 D Total Protein Albumin Lipase Urine Color Urine Appearance Urine pH Ur Specific [place] Urine Protein Urine Glucose (UA) Urine Ketones Ur Blood (Man) Urine Nitrate Urine Bilirubin Urine Urobilinogen Leukocyte Esterase Rfl Urine Opiates Screen Urine Methadone Screen Ur Barbiturates Screen Ur Phencyclidine Scrn Ur Amphetamine Screen U Benzodiazepines Scrn Urine Cocaine Screen U Cannabinoids Screen Quality VTE Prophylaxis VTE prophylaxis: pharmacologic ordered (Lovenox 40 mg subQ daily)
[2025-01-23 03:11] VITALS: BP 122/72; PULSE 80; RESP 20; TEMP 36.5; O2SAT 98
[2025-01-23 04:59] LABS: Hematocrit 41.3 % (42.0-52.0); Hemoglobin 13.5 g/dL (14.0-18.0); Immature Granulocyte Percent A 0.3 % (0-0.5); Lymphocytes Absolute Auto 2.75 K/mm3 (0.9-3.2); Mean Corpuscular HGB Conc 32.7 g/dl (32-36); Mean Corpuscular Hemoglobin 31.3 pg (26-34); Mean Corpuscular Volume 95.6 fl (80-100); Nucleated Red Blood Cells Absolute Auto 0.000 K/mm3 (0.0-0.012); Nucleated Red Blood Cells Perc 0.0 % (0.0-0.2); Platelet Count Result 255 k/mm3 (150-375); Red Blood Count 4.32 M/mm3 (4.6-6.20); White Blood Count 6.6 K/mm3 (4.5-10.0)
[2025-01-23] MEDS: LACTATED RINGERS 1,000 ML 125 ML IV CONT (05:00)
[2025-01-23 05:04] LABS: Alanine Aminotransferase 45 U/L (6-50); Albumin Level 3.7 g/dL (3.5-5.1); Alkaline Phosphatase 61 U/L (38-126); Anion Gap 6 mmol/L (4-12); Aspartate Amino Transferase 68 U/L (17-59); Bilirubin,Total 0.5 mg/dL (0.2-1.3); Blood Urea Nitrogen 9 mg/dL (9-20); Calcium 9.1 mg/dL (8.4-10.2); Carbon Dioxide 26 mmol/L (22-30); Chloride 106 mmol/L (98-107); Creatine Kinase 1277 U/L (55-170); Estimated CRCL calculation 161 ml/min; Estimated Glomerular Filt Rate > 60; Glucose 99 mg/dL (65-110); Potassium 4.3 mmol/L (3.4-5.0); Sodium 138 mmol/L (137-145); Total Protein 7.0 g/dL (6.3-8.2)
--- NOTE | 2025-01-23 11:56 | P.DS_ITS ---
DS: Admitting Diagnosis Discharge Date 01/23/2025 Admitting Diagnosis rhabdomyolysis elevated troponin DS: Discharge Diagnosis Discharge Diagnosis (1) Rhabdomyolysis: Qualifiers: Rhabdomyolysis type: non-traumatic Qualified Code(s): M62.82 - Rhabdomyolysis Code(s): M62.82 - Rhabdomyolysis Status: Acute (2) Elevated troponin: Code(s): R79.89 - Other specified abnormal findings of blood chemistry Status: Acute DS: Summary Hospital Course Reason for hospitalization: rhabdomyolysis elevated troponin Hospital Course: 19-year-old previously healthy male who presented hospital with chest pain. 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 He completed his first day of work on day of admission and then developed chest pain. Patient noted to be dehydrated on admission with an elevated CK concerning for rhabdomyolysis. On admission patient had slightly elevated troponin level with an EKG that showed no ST abnormalities likely related to rhabdomyolysis. Patient started on IV fluids. Troponin downtrended back to normal. CK continues to improve. Electrolytes and renal function remains WNL. Urine output WNL. At time of discharge patient had no complaints denying chest pain, shortness of breath, palpitations, nausea/vomiting, abdominal pain, muscle cramps/pains. Patient stated he felt back at baseline and wished to be discharged home. Had a lengthy discussion with patient that he is to stay adequately hydrated given that his CK level remains slightly elevated. He is also to monitor urine output. Patient is to obtain a CK and BMP in 5 days to reassess levels. Patient is to not undergo any strenuous activity until repeat labs obtained and follow up with PCP. He stated understanding. Patient does not have a PCP, given operations support analyst PCP information and told to follow up with them. Labs will be cc to the operations support analyst PCP office. Patient discharged home in stable condition. He is to follow up with the PCP in 1 week. Status at Discharge Functional status at discharge: independent ambulation Time Spent with Patient Time attestation: Total time spent providing and/or coordinating discharge services: Time spent: Greater than 30 minutes Exam Narrative: AF HR 80 RR 20 SpO2 98 BP 122/72 General: male in no acute respiratory distress who is nontoxic appearing, sitting up in bed HEENT: Normocephalic. Atraumatic. Extraocular movement intact. Sclera clear and anicteric. No facial asymmetry. Chest: Lungs are clear to auscultation bilaterally. CV: Heart was regular rate and rhythm. Abd: Abdomen was soft. Nontender. Nondistended. Positive bowel sounds. Ext: No clubbing, cyanosis, or edema. DP pulses bilaterally. Neuro: Patient is alert and oriented x4. Speech is clear. DS: Data Data Completed and Pending Completed studies during hospitalization: chest xr Labs on day of discharge: Labs from last 24 hours 01/23/25 01/22/25 04:32 14:55 WBC 6.6 RBC 4.32 L Hgb 13.5 L Hct 41.3 L MCV 95.6 MCH 31.3 MCHC 32.7 RDW 11.7 Plt Count 255 MPV 9.5 Immature Gran % (Auto) 0.3 Neut % (Auto) 43.1 L Lymph % (Auto) 41.7 [place] % (Auto) 12.0 H Eos % (Auto) 2.4 Baso % (Auto) 0.5 Lymph # (Auto) 2.75 [place] # (Auto) 0.8 H Eos # (Auto) 0.2 Baso # (Auto) 0.0 Abs Immat Gran (auto) 0.02 Absolute Neuts (auto) 2.8 Absolute Nucleated RBC 0.000 Nucleated RBC % 0.0 Sodium 138 Potassium 4.3 Chloride 106 Carbon Dioxide 26 Anion Gap 6 BUN 9 Creatinine 0.79 Estim Creat Clear Calc 161 Estimated GFR > 60 Glucose 99 Calcium 9.1 Total Bilirubin 0.5 AST 68 H ALT 45 Alkaline Phosphatase 61 Total Creatine Kinase 1277 H 2286 H Total Protein 7.0 Albumin 3.7 Discharge Plan Discharge Attending physician on discharge: Viri Silva Consulting providers: Doris Gleason Discharging Clinician: Doris Gleason Anticipated Discharge Date/Time: 01/23/25 11:48 Patient Disposition: Home Activity: as tolerated Diet: as tolerated Discharge Instructions: Discharge disposition: Patient admitted to the hospital for rhabdomyolysis likely related to strenuous activity in the heat Continue to stay well hydrated Monitor urine output No strenuous activity for 1 week, work note to be given for one week Obtain a CK level and BMP in 5 days to reassess Follow up with Dr. Dwyer in 1 -2 weeks Take caution while standing, rising, or moving Change positions slowly taking a break between each position change If you standing feel dizzy sit back down and take a break Encouraged to continue with yearly vaccinations Return to the emergency department if he developed sudden shortness of breath, chest pain, nausea, vomiting, upset stomach or intractable diarrhea Return to the emergency department if you develop fever greater than 100.5 Follow-up with the primary care physician within 1-2 weeks Thank you for [facility] for your healthcare needs Patient Instructions: Dehydration (DC), Rhabdomyolysis (DC) Patient Language: Kittitian Stand Alone Forms: General Discharge Information, Work/School Release IP Follow-up/Referrals: Gael Dwyer MD [Physician, Family Practice] - 1 Week Discharge Medications: Continued acetaminophen 500 mg capsule 1,000 mg PO Q6H PRN (Reason: pain) Qty: 30 0RF Other Ambulatory Orders: Basic Metabolic Panel (Routine) Timeframe: 5 Days Location: Determined by Patient Ordered By: Doris Gleason Basic Metabolic Panel (Routine) Timeframe: 5 Days Location: Determined by Patient Ordered By: Doris Gleason Creatine Kinase (Routine) Timeframe: 5 Days Location: Determined by Patient Ordered By: Doris Gleason Creatine Kinase (Routine) Timeframe: 5 Days Location: Determined by Patient Ordered By: Doris Gleason Date of admission: 01/22/25 02:39 Primary Care Provider: PHYSICIAN,CRM MARKETING EXECUTIVE Admitting Provider: Jennifer Hahn Attending physician on admission: Jennifer Hahn Condition: Stable Hospitalist MIPS Heart Failure (Exclusion) Patient has history of Heart Transplant or Left Ventricular Assistive Device?: No IF YES, STOP HERE Heart Failure (Qualifier) Patient has current or prior documentation of LVEF less than or equal to 40%, or mod/servere depressed LVSF?: No IF NO, STOP HERE
== END 2025-01-23 12:35 | disposition home or self-care (01) ==
LOC: ANHED 01-22 02:23 → ANH2MED 01-23 06:50 → ANH3MEDSUR 01-24 07:33
PROVIDERS: Nurse Practitioner; Admitting Provider Internal Medicine; Emergency Provider Emergency Medicine; Visit Provider Internal Medicine
DX: M62.82 Rhabdomyolysis (principal); R79.89 Other specified abnormal findings of blood chemistry
CPT/HCPCS: 36415; 71046; 80053; 80307; 81003; 82550; 83690; 84484; 85025; 85380; 85610; 85730; 93005; 96360; 96361; 99285; A9270; G0378; J7120

== ENCOUNTER 2025-01-27 19:26 | Emergency (ER) | payer BC, SELFPAY ==
[2025-01-27] VITALS (9 sets, daily range): BP systolic 137–150; BP diastolic 76–87; PULSE 90–115; RESP 12–31; TEMP 36.7; O2SAT 95–100
[2025-01-27 20:07] LABS: Hematocrit 43.9 % (42.0-52.0); Hemoglobin 14.5 g/dL (14.0-18.0); Immature Granulocyte Percent A 0.5 % (0-0.5); Lymphocytes Absolute Auto 2.48 K/mm3 (0.9-3.2); Mean Corpuscular HGB Conc 33.0 g/dl (32-36); Mean Corpuscular Hemoglobin 31.3 pg (26-34); Mean Corpuscular Volume 94.6 fl (80-100); Nucleated Red Blood Cells Absolute Auto 0.000 K/mm3 (0.0-0.012); Nucleated Red Blood Cells Perc 0.0 % (0.0-0.2); Platelet Count Result 311 k/mm3 (150-375); Red Blood Count 4.64 M/mm3 (4.6-6.20); White Blood Count 8.8 K/mm3 (4.5-10.0)
[2025-01-27 20:20] LABS: Alanine Aminotransferase 60 U/L (6-50); Albumin Level 4.4 g/dL (3.5-5.1); Alkaline Phosphatase 74 U/L (38-126); Anion Gap 9 mmol/L (4-12); Aspartate Amino Transferase 50 U/L (17-59); Bilirubin,Total 0.4 mg/dL (0.2-1.3); Blood Urea Nitrogen 10 mg/dL (9-20); Calcium 9.7 mg/dL (8.4-10.2); Carbon Dioxide 29 mmol/L (22-30); Chloride 100 mmol/L (98-107); Creatine Kinase 298 U/L (55-170); Estimated CRCL calculation 139 ml/min; Estimated Glomerular Filt Rate > 60; Glucose 98 mg/dL (65-110); Lipase 79 U/L (23-300); Magnesium 1.8 mg/dL (1.6-2.3); Potassium 4.2 mmol/L (3.4-5.0); Sodium 138 mmol/L (137-145); Total Protein 8.3 g/dL (6.3-8.2)
[2025-01-27 20:33] LABS: Add Urine Microscopic? NO; Appearance Urine Clear (Clear); Glucose Urine UA Negative (Negative); Leukocyte Esterase Ur Negative LEU/UL (Negative); Nitrate Urine Negative (Negative); Specific Grav Ur 1.023 (1.001-1.035)
--- NOTE | 2025-01-27 20:34 | ED.GENADULT ---
HPI - General Adult General Chief complaint: Back Pain/Injury Stated complaint: diarrhea/back pain Time Seen by Provider: 01/27/25 19:43 History of Present Illness HPI narrative: Patient is a 19-year-old male who presents to the emergency department this evening wanting to have his CPK itch we checked. Patient states that he was here on 01/22 and was noted to be in rhabdo with a CPK over 1999 he was admitted for a few days for IV hydration and discharged home. States that today while he was walking he felt some back pain and thought that this might be due to his CPK so he wanted to be rechecked otherwise he denies any additional symptoms or concerns, denies any trauma. Related Data Allergies Allergy/AdvReac Type Severity Reaction Status Date / Time banana Allergy Unknown Verified 12/28/24 17:49 Fish Containing Products Allergy Unknown Verified 12/28/24 17:49 Review of Systems Review of Systems: All systems are reviewed and are negative unless stated otherwise in the HPI. [facility] Past Medical History Medical History No significant past medical history Surgical History Surgical History No history of previous surgery Family History Family History Other Essential hypertension Social History Social History Social History: The patient lives with his girlfriend. He reports he rarely drinks alcohol. He denies any tobacco use, illicit substance use or vaping. Code status: Full code Smoking status: Never smoker Second hand tobacco smoke exposure: No Alcohol intake: never Substance use: never Substance use type: does not use Lack of Transportation: No Lack of Food: Never True Current Housing: I Have Housing Concerned About Future Housing: No Difficulty Paying Gas/Electric Bills: No Difficulty Paying for Meds: No Currently Unemployed: No Education: Grade School Difficulty w/ Childcare or Family Care: No Spiritual care concerns: No Exam Narrative: General: Alert, awake, afebrile, in no acute distress. HEENT: PERRL, no rhinorrhea, no post nasal drip, oropharynx clear. Neck: Trachea midline, no JVD, no lymphadenopathy. Cardiovascular: Regular rate and rhythm, no murmurs, rubs or gallops, no peripheral edema. Respiratory: Clear to auscultation bilaterally, no tachypnea, no wheezing, no rhonchi, no rubs, no respiratory distress. Abdomen: Soft, nontender, nondistended, no rebound, no guarding, no peritoneal signs. Musculoskeletal: No joint swelling or deformity, normal muscle tone. Skin: No rashes or petechia, no signs of infection. Psychiatric: Alert and oriented, normal behavior and judgment for situation. Neurological: Alert and oriented to person, place, and time. Follows all commands. No focal deficits, speech is clear and fluent. Course Vital Signs Vital signs: Vital Signs Temperature 98.1 F 01/27/25 19:33 Pulse Rate 94 01/27/25 19:33 Respiratory Rate 12 01/27/25 19:33 Blood Pressure 137/77 01/27/25 19:33 Pulse Oximetry 98 01/27/25 19:33 Oxygen Delivery Room Air 01/27/25 19:33 Temperature 98.1 F 01/27/25 19:33 Pulse Rate 94 01/27/25 19:33 Respiratory Rate 12 01/27/25 19:33 Blood Pressure 137/77 01/27/25 19:33 Pulse Oximetry 98 01/27/25 19:33 Oxygen Delivery Room Air 01/27/25 19:33 Medical Decision Making MDM Narrative Medical decision making narrative: The patient was evaluated by myself in the emergency department. History is obtained from patient who is an independent historian and physical exam was performed. External medical records were reviewed at this time. IV was established and pertinent tests were ordered. Patient was administered 15 mg of IM Toradol for pain. Laboratory results obtained revealing a CPK level of 298 otherwise unremarkable. Urinalysis unremarkable. Differential diagnosis considerations include rhabdo, musculoskeletal strain, dehydration, electrolyte derangements. Comorbidities impacting this visit include recent hospital admission for rhabdomyolysis. I have evaluated and discussed social determinants of health with the patient that could potentially impact subsequent diagnosis and treatment plans. On repeat assessment of the patient, reevaluation revealed that the patient is doing well and is in no acute distress. Patient symptoms have improved since he arrived to our emergency department. Repeat vital signs were all reviewed and noted to be stable. Differential diagnosis and treatment plan were discussed with the patient at bedside. Patient agrees with discussion and after shared medical decision making agrees with discharge. All questions were answered to the patient's satisfaction. Patient will follow up with PCP in 3-5 days. Patient was provided with strict return precautions and instructed to return to the emergency department if any new or worsening symptoms develop. The patient was discharged in stable condition. Vital Signs Vital Signs: Vital Signs Temperature 98.1 F 01/27/25 19:33 Pulse Rate 94 01/27/25 19:33 Respiratory Rate 12 01/27/25 19:33 Blood Pressure 137/77 01/27/25 19:33 Pulse Oximetry 98 01/27/25 19:33 Oxygen Delivery Room Air 01/27/25 19:33 Temperature 98.1 F 01/27/25 19:33 Pulse Rate 94 01/27/25 19:33 Respiratory Rate 12 01/27/25 19:33 Blood Pressure 137/77 01/27/25 19:33 Pulse Oximetry 98 01/27/25 19:33 Oxygen Delivery Room Air 01/27/25 19:33 Lab Data 01/27/25 19:55 01/27/25 19:55 Labs: Lab Results 01/27/25 01/27/25 Range/Units 19:55 20:28 WBC 8.8 (4.5-10.0) K/mm3 RBC 4.64 (4.6-6.20) M/mm3 Hgb 14.5 (14.0-18.0) g/dL Hct 43.9 (42.0-52.0) % MCV 94.6 (80-100) fl MCH 31.3 (26-34) pg MCHC 33.0 (32-36) g/dl RDW 11.9 (11.5-14.5) % Plt Count 311 (150-375) k/mm3 MPV 9.1 (7.4-10.4) fl Immature Gran % (Auto) 0.5 (0-0.5) % Neut % (Auto) 60.1 (45.5-73.1) % Lymph % (Auto) 28.1 (18.3-44.2) % [place] % (Auto) 9.4 H (2.6-8.5) % Eos % (Auto) 1.4 (0-4.4) % Baso % (Auto) 0.5 (0.2-1.2) % Lymph # (Auto) 2.48 (0.9-3.2) K/mm3 [place] # (Auto) 0.8 H (0.1-0.6) K/mm3 Eos # (Auto) 0.1 (0-0.3) K/mm3 Baso # (Auto) 0.0 (0.0-0.1) K/mm3 Abs Immat Gran (auto) 0.04 H (0.00-0.031) K/mm3 Absolute Neuts (auto) 5.3 (1.3-6.7) K/mm3 Absolute Nucleated RBC 0.000 (0.0-0.012) K/mm3 Nucleated RBC % 0.0 (0.0-0.2) % Sodium 138 (137-145) mmol/L Potassium 4.2 (3.4-5.0) mmol/L Chloride 100 (98-107) mmol/L Carbon Dioxide 29 (22-30) mmol/L Anion Gap 9 (4-12) mmol/L BUN 10 (9-20) mg/dL Creatinine 0.92 (0.7-1.3) mg/dL Estim Creat Clear Calc 139 ml/min Estimated GFR > 60 (59 - ) Glucose 98 (65-110) mg/dL Calcium 9.7 (8.4-10.2) mg/dL Magnesium 1.8 (1.6-2.3) mg/dL Total Bilirubin 0.4 (0.2-1.3) mg/dL AST 50 (17-59) U/L ALT 60 H (6-50) U/L Alkaline Phosphatase 74 (38-126) U/L Total Creatine Kinase 298 H (55-170) U/L Total Protein 8.3 H (6.3-8.2) g/dL Albumin 4.4 (3.5-5.1) g/dL Lipase 79 (23-300) U/L Urine Color Pending Urine Appearance Pending Urine pH Pending Ur Specific [place] Pending Urine Protein Pending Urine Glucose (UA) Pending Urine Ketones Pending Ur Blood (Man) Pending Urine Nitrate Pending Urine Bilirubin Pending Urine Urobilinogen Pending Leukocyte Esterase Rfl Pending Discharge Plan Discharge Clinical Impression: Elevated CPK Patient Disposition: Home Condition: Improved Instructions: Antibiotic Form, Back Pain (ED) Additional Instructions: Please follow-up with the family doctor within the next 3-5 days. Return to the emergency department if any new or worsening symptoms develop. Maintain your oral hydration by drinking lots of fluids. Patient Language: Burkinan Prescriptions: No Action acetaminophen 500 mg capsule 1,000 mg PO Q6H PRN (Reason: pain) Qty: 30 0RF Follow-up/Referrals: PHYSICIAN,PATIENT ACCESS SPECIALIST [Non-Staff, Internal Medicine] Robi Walker MD [Physician, Family Practice] - 3 Days Time of Disposition: 20:38
[2025-01-27] MEDS: KETOROLAC 30 MG/ML VIAL (*BKC) 15 MG IM (20:38)
== END 2025-01-27 21:05 | disposition home or self-care (01) ==
PROVIDERS: Emergency Provider Emergency Medicine
DX: R74.8 Abnormal levels of other serum enzymes (principal)
CPT/HCPCS: 36415; 80053; 81003; 82550; 83690; 83735; 85025; 96360; 96372; 99283; J1885

== ENCOUNTER 2025-06-03 09:42 | Emergency (ER) | payer SELFPAY ==
[2025-06-03 09:45] VITALS: BP 125/90; PULSE 109; RESP 20; TEMP 36.2; O2SAT 100
--- OUTSIDE RECORDS SUMMARY | 2025-06-03 10:04 | XMS_ITS | Patient Health Record ---
Author Organization Formerly [facility] Address [address] [place] [address] Phone [phone] Care Team Providers Care Rolled Oats Mill Operator Name Role Phone Meng Meza APRN Primary Care Provider [phone] Allergies No Known Allergies Reason For Referral No Information Medications Medication SIG (Take, Route, Frequency, Duration) Notes Start Date End Date Diagnosis (ICD Code) Status guanFACINE HCl ER 1 MG Tablet Extended Release 24 Hour 1 tablet before bed. Orally Once a day; Duration: 30 day(s) 10/21/2021 Poor concentrati on (ICD_10 - R41.840) Active Social History Sex Observation Social History Observation Description Sex Observation Male Social History Primary Social History Social Info Question Answer Notes Living Arrangement Living Arrangement: Dependent Anabela gao Living with: Parent(s) Is this a supportive environment? 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
[2025-06-03 11:47] LABS: Hematocrit 46.8 % (42.0-52.0); Hemoglobin 15.8 g/dL (14.0-18.0); Immature Granulocyte Percent A 0.3 % (0-0.5); Lymphocytes Absolute Auto 2.24 K/mm3 (0.9-3.2); Mean Corpuscular HGB Conc 33.8 g/dl (32-36); Mean Corpuscular Hemoglobin 31.9 pg (26-34); Mean Corpuscular Volume 94.5 fl (80-100); Nucleated Red Blood Cells Absolute Auto 0.000 K/mm3 (0.0-0.012); Nucleated Red Blood Cells Perc 0.0 % (0.0-0.2); Platelet Count Result 308 k/mm3 (150-375); Red Blood Count 4.95 M/mm3 (4.6-6.20); White Blood Count 7.9 K/mm3 (4.5-10.0)
[2025-06-03 12:05] LABS: Hemoglobin A1C 5.6 % (<5.7)
--- NOTE | 2025-06-03 12:05 | ED.GENADULT ---
HPI - General Adult General Chief complaint: Unspecified Stated complaint: sleepy, blurred vision, itchy skin Time Seen by Provider: 06/03/25 11:00 History of Present Illness HPI narrative: 19-year-old male present to the emergency department for evaluation for concern of diabetes. Patient states he has had elevated blood sugars before but that was after just 8. Patient states intermittently he has had increased urinary output but denies any daily increased urinary output. Related Data Allergies Allergy/AdvReac Type Severity Reaction Status Date / Time banana Allergy Unknown Verified 06/03/25 11:17 Fish Containing Products Allergy Unknown Verified 06/03/25 11:17 Review of Systems Review of Systems: All systems reviewed & are unremarkable except as noted in HPI and below PMFSH Past Medical History Medical History No significant past medical history Surgical History Surgical History No history of previous surgery Family History Family History Other Essential hypertension Social History Social History Social History: The patient lives with his girlfriend. He reports he rarely drinks alcohol. He denies any tobacco use, illicit substance use or vaping. Code status: Full code Smoking status: Never smoker Second hand tobacco smoke exposure: No Alcohol intake: never Substance use: never Substance use type: does not use Lack of Transportation: No Lack of Food: Never True Current Housing: I Have Housing Concerned About Future Housing: No Difficulty Paying Gas/Electric Bills: No Difficulty Paying for Meds: No Currently Unemployed: No Education: Grade School Difficulty w/ Childcare or Family Care: No Spiritual care concerns: No Exam Narrative: APPEARANCE: Well appearing, no pain, no distress, well-nourished. HEAD: normocephalic, atraumatic. EYES: PERRLA/EOMI, conjunctivae clear. NOSE: Normal no drainage NECK: Supple. No adenopathy, no masses. RESPIRATORY: Airway patent, respirations nonlabored. Clear to auscultation bilaterally, no rales, rhonchi, wheezing. CARDIOVASCULAR: Regular rate and rhythm without murmurs rubs or gallops. ABDOMINAL: Soft, nontender, nondistended, normal bowel sounds MUSCULOSKELETAL: Moves all extremities. Strength/ROM intact, No edema, No calf tenderness. NEURO: Alert. Cranial nerves II through XII intact. Good gait. Good coordination SKIN: Warm, dry. Normal Color Course Vital Signs Vital signs: Vital Signs Temperature 97.2 F L 06/03/25 09:45 Pulse Rate 109 H 06/03/25 09:45 Respiratory Rate 20 06/03/25 09:45 Blood Pressure 125/90 06/03/25 09:45 Pulse Oximetry 100 06/03/25 09:45 Oxygen Delivery Room Air 06/03/25 09:45 Temperature 97.5 F L 06/03/25 12: Pulse Rate 99 06/03/25 12: Respiratory Rate 16 06/03/25 12:29 Blood Pressure 127/81 06/03/25 12: Pulse Oximetry 99 06/03/25 12:29 Oxygen Delivery Room Air 06/03/25 09:45 [facility] Narrative Medical decision making narrative: 19-year-old male presents emergency department for evaluation for possible hyperglycemia. Patient is afebrile with no leukocytosis and stable hemoglobin. Patient has no acute abnormalities on his CMP and normal hemoglobin A1c. Was encouraged close follow-up with primary care physician. Differential Diagnosis Differential Diagnosis: Dehydration, gastritis, prediabetes, diabetes Lab Data [facility] Lab Attestation statement: I personally reviewed the patient's lab results. 06/03/25 11:41 06/03/25 11:41 Labs: Lab Results 06/03/25 06/03/25 Range/Units 09:49 11:41 WBC 7.9 (4.5-10.0) K/mm3 RBC 4.95 (4.6-6.20) M/mm3 Hgb 15.8 (14.0-18.0) g/dL Hct 46.8 (42.0-52.0) % MCV 94.5 (80-100) fl MCH 31.9 (26-34) pg MCHC 33.8 (32-36) g/dl RDW 12.0 (11.5-14.5) % Plt Count 308 (150-375) k/mm3 MPV 9.5 (7.4-10.4) fl Immature Gran % (Auto) 0.3 (0-0.5) % Neut % (Auto) 59.0 (45.5-73.1) % Lymph % (Auto) 28.4 (18.3-44.2) % [place] % (Auto) 10.2 H (2.6-8.5) % Eos % (Auto) 1.6 (0-4.4) % Baso % (Auto) 0.5 (0.2-1.2) % Lymph # (Auto) 2.24 (0.9-3.2) K/mm3 [place] # (Auto) 0.8 H (0.1-0.6) K/mm3 Eos # (Auto) 0.1 (0-0.3) K/mm3 Baso # (Auto) 0.0 (0.0-0.1) K/mm3 Abs Immat Gran (auto) 0.02 (0.00-0.031) K/mm3 Absolute Neuts (auto) 4.7 (1.3-6.7) K/mm3 Absolute Nucleated RBC 0.000 (0.0-0.012) K/mm3 Nucleated RBC % 0.0 (0.0-0.2) % Sodium 138 (137-145) mmol/L Potassium 4.4 (3.4-5.0) mmol/L Chloride 105 (98-107) mmol/L Carbon Dioxide 27 (22-30) mmol/L Anion Gap 6 (4-12) mmol/L BUN 13 (9-20) mg/dL Creatinine 0.72 (0.7-1.3) mg/dL Estim Creat Clear Calc 177 ml/min Estimated GFR > 60 (59 - ) Glucose 109 (65-110) mg/dL POC Capillary Glucose 96 (65-105) mg/dl Hemoglobin A1c 5.6 (<5.7) % Calcium 9.3 (8.4-10.2) mg/dL Total Bilirubin 0.6 (0.2-1.3) mg/dL AST 44 (17-59) U/L ALT 54 H (6-50) U/L Alkaline Phosphatase 89 (38-126) U/L Total Protein 8.1 (6.3-8.2) g/dL Albumin 4.3 (3.5-5.1) g/dL Discharge Plan Discharge Clinical Impression: Screening for diabetes mellitus Patient Disposition: Home Condition: Stable Instructions: Antibiotic Form Additional Instructions: Your glucose was not elevated and your hemoglobin A1c was within normal limits. Low concern for diabetes at this time. Have close follow-up with your primary care physician. Patient Language: Urdu Prescriptions: No Action acetaminophen 500 mg capsule 1,000 mg PO Q6H PRN (Reason: pain) Qty: 30 0RF Follow-up/Referrals: PHYSICIAN,Y[facility]ACKER [Primary Care Provider, Internal Medicine]
[2025-06-03 12:12] LABS: Alanine Aminotransferase 54 U/L (6-50); Albumin Level 4.3 g/dL (3.5-5.1); Alkaline Phosphatase 89 U/L (38-126); Anion Gap 6 mmol/L (4-12); Aspartate Amino Transferase 44 U/L (17-59); Bilirubin,Total 0.6 mg/dL (0.2-1.3); Blood Urea Nitrogen 13 mg/dL (9-20); Calcium 9.3 mg/dL (8.4-10.2); Carbon Dioxide 27 mmol/L (22-30); Chloride 105 mmol/L (98-107); Estimated CRCL calculation 177 ml/min; Estimated Glomerular Filt Rate > 60; Glucose 109 mg/dL (65-110); Potassium 4.4 mmol/L (3.4-5.0); Sodium 138 mmol/L (137-145); Total Protein 8.1 g/dL (6.3-8.2)
[2025-06-03 12:29] VITALS: BP 127/81; PULSE 99; RESP 16; TEMP 36.4; O2SAT 99
== END 2025-06-03 12:30 | disposition home or self-care (01) ==
PROVIDERS: Emergency Provider Emergency Medicine
DX: R35.89 Other polyuria (principal); Z13.1 Encounter for screening for diabetes mellitus
CPT/HCPCS: 36415; 80053; 82948; 83036; 85025; 99283